=== PATIENT | male | born 1960 ===

== ENCOUNTER 2018-09-03 10:56 | Outpatient (REF) | payer BC, SELFPAY ==
[2018-09-03 19:27] LABS: Iron 80 ug/dL (50-175)
[2018-09-03 19:54] LABS: ALT 39 U/L (12-78); AST 19 U/L (15-37); Albumin 3.7 g/dL (3.4-5.0); Alkaline Phosphatase 137 U/L (46-116); Anion Gap 7.3 mmol/L (3-11); BUN 16 mg/dL (7-18); Bilirubin, Total 0.4 mg/dL (0.2-1.0); CO2 29.7 mmol/L (21.0-32.0); CREATININE 1.06 mg/dL (0.70-1.30); Calcium 8.9 mg/dL (8.5-10.1); Chloride 105 mmol/L (98-107); Ferritin 78 ng/mL (8-388); Glucose 90 mg/dL (70-100); Potassium 4.4 mmol/L (3.5-5.1); Sodium 142 mmol/L (136-145); TSH 1.72 uIU/mL (0.358-3.74); Total Protein 6.8 g/dL (6.4-8.2); Vitamin B12 663 pg/mL (193-986)
== END 2018-09-03 11:16 ==
LOC: NCHCN 10:56
PROVIDERS: PCP Physician Assistant Medical; Visit Provider Physician Assistant Medical
DX: D50.9 Iron deficiency anemia, unspecified (principal)
CPT/HCPCS: 80053; 82607; 82728; 83540; 84443

== ENCOUNTER 2020-05-04 16:34 | Outpatient (REF) | payer BC, SELFPAY | END 2020-05-04 16:54 | LOC: NCHCN 16:34 | PROVIDERS: PCP Internal Medicine; Visit Provider Internal Medicine | DX: R39.15 Urgency of urination (principal); N41.0 Acute prostatitis | CPT/HCPCS: 87086 ==

== ENCOUNTER 2020-05-18 10:57 | Outpatient (REF) | payer BC, SELFPAY ==
[2020-05-22 15:48] LABS: SARS-CoV-2 RNA Undetected (Undetected); SARS-CoV-2 Specimen Source Nasal
== END 2020-05-18 11:17 ==
LOC: NCHCN 10:57
PROVIDERS: PCP Internal Medicine; Visit Provider Internal Medicine
DX: R05 Cough (principal); R50.9 Fever, unspecified
CPT/HCPCS: U0003

== ENCOUNTER 2020-12-06 14:11 | Outpatient (REF) | payer BC, SELFPAY ==
[2020-12-06 21:41] LABS: ALT 37 U/L (16-63); Anion Gap 9.5 mmol/L (3-11); BUN 17 mg/dL (7-18); CO2 28.5 mmol/L (21.0-32.0); Calcium 8.9 mg/dL (8.5-10.1); Chloride 107 mmol/L (98-107); Glucose 97 mg/dL (74-106); Potassium 4.1 mmol/L (3.5-5.1); Sodium 145 mmol/L (136-145)
[2020-12-06 21:55] LABS: LDL CHOLESTEROL 72 mg/dL (<100)
== END 2020-12-06 14:12 | disposition home or self-care (01) ==
LOC: NCHCN 14:11
PROVIDERS: PCP Internal Medicine; Visit Provider Internal Medicine
DX: C43.9 Malignant melanoma of skin, unspecified (principal); Z01.818 Encounter for other preprocedural examination
CPT/HCPCS: 80048; 83721; 84460

== ENCOUNTER 2021-11-21 16:15 | Outpatient (REF) | payer BC, SELFPAY ==
[2021-11-21 21:03] LABS: ALT 36 U/L (16-63); Anion Gap 7.7 mmol/L (3-11); BUN 16 mg/dL (7-18); CO2 27.3 mmol/L (21.0-32.0); CREATININE 0.8 mg/dL (0.70-1.30); Calcium 8.4 mg/dL (8.5-10.1); Calculated LDL 66 mg/dL (<100); Chloride 108 mmol/L (98-107); Cholesterol 131 mg/dL (<200); Glucose 89 mg/dL (74-106); HDL Cholesterol 40 mg/dL (40-60); Sodium 143 mmol/L (136-145); Triglyceride 129 mg/dL (<150)
== END 2021-11-21 16:16 | disposition home or self-care (01) ==
LOC: NCHCN 16:15
PROVIDERS: PCP Internal Medicine; Visit Provider Internal Medicine
DX: I10 Essential (primary) hypertension (principal); E78.5 Hyperlipidemia, unspecified
CPT/HCPCS: 80048; 80061; 84460

== ENCOUNTER 2022-05-17 16:20 | Outpatient (REF) | payer BC, SELFPAY ==
[2022-05-17 19:47] LABS: Bacteria Negative HPF (Negative); C & S Indicated? C&S Done As Ordered; Crystals Negative HPF (Negative); Epithelial Cells Negative HPF (Negative); Mucus Trace (Negative); RBC 0-2 HPF (0-2)
== END 2022-05-17 16:21 | disposition home or self-care (01) ==
LOC: NCHCN 16:20
PROVIDERS: PCP Internal Medicine; Visit Provider Internal Medicine
DX: R35.0 Frequency of micturition (principal)
CPT/HCPCS: 81015; 87086

== ENCOUNTER 2023-12-04 14:38 | Outpatient (REF) | payer BC, SELFPAY ==
[2023-12-04 20:26] LABS: ALT 43 U/L (16-63); Anion Gap 11.1 mmol/L (3-11); BUN 19 mg/dL (7-18); CO2 24.9 mmol/L (21.0-32.0); Calcium 8.9 mg/dL (8.5-10.1); Calculated LDL 60 mg/dL (<100); Chloride 110 mmol/L (98-107); Cholesterol 134 mg/dL (<200); Estimated GFR 84.05 (mL/min/1.73m2); Glucose 92 mg/dL (74-106); HDL Cholesterol 50 mg/dL (40-60); Potassium 4.1 mmol/L (3.5-5.1); Sodium 146 mmol/L (136-145); Triglyceride 123 mg/dL (<150)
[2023-12-04 20:42] LABS: Creatine Kinase 106 U/L (39-308)
[2023-12-05 19:13] LABS: Hepatitis C Ab w Rflx HCV PCR Negative (Negative)
[2023-12-05 19:24] LABS: HIV-1/2 Ag & Ab Screen Negative (Negative)
== END 2023-12-04 14:39 | disposition home or self-care (01) ==
LOC: NCHCN 14:38
PROVIDERS: PCP Internal Medicine; Visit Provider Internal Medicine
DX: I10 Essential (primary) hypertension (principal); Z11.4 Encounter for screening for human immunodeficiency virus [HIV]; Z11.59 Encounter for screening for other viral diseases
CPT/HCPCS: 80048; 80061; 82550; 86803; 87389; 84443; 84460

== ENCOUNTER 2024-12-09 15:09 | Outpatient (REF) | payer BC, SELFPAY ==
[2024-12-09 19:46] LABS: ALT 40 U/L (16-63); Anion Gap 8.4 mmol/L (3-11); BUN 15 mg/dL (7-18); CO2 26.6 mmol/L (21.0-32.0); CREATININE 0.9 mg/dL (0.70-1.30); Calculated LDL 58 mg/dL (<100); Chloride 108 mmol/L (98-107); Cholesterol 117 mg/dL (<200); Estimated GFR 94.78 (mL/min/1.73m2); Glucose 103 mg/dL (74-106); HDL Cholesterol 40 mg/dL (>or=40); Potassium 4.4 mmol/L (3.5-5.1); Sodium 143 mmol/L (136-145); Triglyceride 98 mg/dL (<150)
[2024-12-09 20:10] LABS: Creatine Kinase 100 U/L (39-308)
== END 2024-12-09 15:10 | disposition home or self-care (01) ==
LOC: NCHCN 15:09
PROVIDERS: PCP Internal Medicine; Visit Provider Internal Medicine
DX: R00.0 Tachycardia, unspecified (principal); E78.5 Hyperlipidemia, unspecified; I10 Essential (primary) hypertension
CPT/HCPCS: 80048; 80061; 82550; 84443; 84460